=== PATIENT | male | born 2000 | race Caucasian/White ===

== ENCOUNTER 2022-08-12 11:02 | Emergency (ER) | payer SELFPAY ==
--- NOTE | 2022-08-12 12:11 | RAD REPORT ---
EXAM DESCRIPTION: CT - Head C Spine Partha Larson - 08/12/2022 11:34 am CLINICAL HISTORY: Head and neck injury with chest and abdominal pain status post fall. Head and neck pain . TECHNIQUE: Computed axial tomography of the head and cervical spine was obtained Computed axial tomography of the chest, abdomen and pelvis was obtained. 100 cc Isovue-300 was given intravenously coronal and sagittal reconstruction was performed. All CT scans are performed using dose optimization technique as appropriate and may include automated exposure control or mA/KV adjustment according to patient size. FINDINGS: An intracranial bleed is not seen. The ventricles are normal in caliber. An extra-axial fl uid collection is not noted. Fluid within the sinuses is not seen A cervical fracture is not seen. No dislocation is seen. A mediastinal hematoma is not noted. A pleural effusion is not present. A lung contusion is not seen. 1.3 centimeter avulsion fracture involves the inferior glenoid right scapula. Hill-Sachs deformity ri ght humerus The liver, spleen, pancreas, adrenals, kidneys and bladder do not demonstrate an acute traumatic inju ry IMPRESSION: No acute intracranial abnormality is seen A cervical fracture is not visualized. If the patient continues have symptoms to suggest intracranial /spinal cord pathology then MRI would be recommended. 1.3 centimeter avulsion fracture involves the inferior glenoid right scapula
--- NOTE | 2022-08-12 12:58 | RAD REPORT ---
EXAM DESCRIPTION: RAD - Shoulder Right 2 View - 08/12/2022 12:15 pm CLINICAL HISTORY: Right shoulder pain FINDINGS: Hill-Sachs deformity No dislocation Cortical irregularity inferior right glenoid consistent with a fracture
--- NOTE | 2022-08-12 13:18 | ER ---
Nurse's Notes [facility] Name: Parveen Bowser Age: 22 yrs Sex: Male : 2000 Arrival Date: 08/12/2022 Time: 11:04 Bed 4 Private MD: Diagnosis: Fall (on) (from) unspecified stairs and steps;Unspecified injury of head, initial encounter;Pain in right shoulder Presentation: 08/12 11:09 Chief complaint: EMS states: "pt was working on some scaffolding when he lost his [employer] balance and fell about 15 Feet. the other people on site attempted to help stop the fall so came down sideways. it was reported that he his his head and his right shoulder. he did have a positive LOC and was a little confused initially. he was asking the same question about 5 times for about 15 min then became fully functioning again. GCS of 15. backboard and C-collar in place.". Coronavirus screen: At this time, the client does not indicate any symptoms associated with coronavirus-19. Ebola Screen: No symptoms or risks identified at this time. Initial Sepsis Screen: Does the patient meet any 2 criteria? No. Patient's initial sepsis screen is negative. Does the patient have a suspected source of infection? No. Patient's initial sepsis screen is negative. Risk Assessment: Do you want to hurt yourself or someone else? Patient reports no desire to harm self or others. Onset of symptoms was August 12, 2022. 11:09 Method Of Arrival: EMS: [facility] 11:09 Acuity: BAN 2 [facility] 11:10 Care prior to arrival: Cervical collar in place. Placed on backboard. [facility] 11:15 Care prior to arrival: Cervical collar in place. Placed on backboard. [facility] 11:15 Mechanism of Injury: Fall 15 foot scaffolding. 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 Trauma Activation: Alert Physician: ED Physician; Name: Butch; Notified At: 11:00; Arrived At: 11:00 Physician: General Surgeon; Name: ; Notified At: 11:16; Arrived At: Physician: Radiology; Name: CT and Xray; Notified At: 11:16; Arrived At: 11:00 Physician: Respiratory; Name: ; Notified At: 11:16; Arrived At: Physician: Lab; Name: ; Notified At: 11:16; Arrived At: Historical: - Allergies: 11:13 Sulfa (Sulfonamide Antibiotics); jd3 - Home Meds: 11:13 None [Active]; jd3 - PMHx: 11:13 Autoimmune disease; jd3 - Immunization history:: Adult Immunizations up to date. - Social history:: Smoking status: unknown. - Immunization history: Last tetanus immunization: unknown. - Family history:: not pertinent. Screenin:15 Abuse screen: Denies threats or abuse. Nutritional screening: No deficits noted. jd3 Tuberculosis screening: No symptoms or risk factors identified. 11:23 Fall Risk Fall in past 12 months (25 points). IV access (20 points). Ambulatory Aid- jd3 None/Bed Rest/Nurse Assist (0 pts). Gait- Normal/Bed Rest/Wheelchair (0 pts) Mental Status- Oriented to own ability (0 pts). Total Mckeon Fall Scale indicates Low Risk Score (25-44 pts). Fall prevention measures have been instituted. Side Rails Up X 2 Placed close to Nursing Station Frequent Obs/Assesments occuring As available Patient and Family Educated on Fall Prevention Program and strategies. Primary Survey: 11:15 NO uncontrolled hemorrhage observed. A: The client is awake and alert. The airway is jd3 patent. The client is alert. Airway: patent, No supplemental oxygen in use on arrival. Oral cavity: clear, Trachea midline. Breathing/Chest: Spontaneous respiratory effort, equal unlabored respirations, breath sounds clear bilaterally, regular pattern, symmetrical chest rise and fall. Respiratory effort: spontaneous, unlabored, Breath sounds: clear, bilaterally. Respiratory pattern: regular, Chest inspection: symmetrical rise and fall of the chest. Circulation: No external hemorrhage present. Regular and strong central pulse, skin warm/dry/normal color. Pulses: palpable right radial artery, right dorsalis pedis artery, left radial artery, left dorsalis pedis artery, left carotid pulse and right carotid pulse. Skin color: pink, Skin temperature: warm, Heart tones present. Disability Pupils are equal, round, reactive to light and accommodation. Client is alert. Exposure/Environment: All clothing and personal items were removed. Forensic evidence collection is not deemed to be indicated at this time. Items placed in patient belonging bag. There is no evidence of uncontrolled external bleeding. No obvious injuries are noted at this time. A warming method has been applied: A warm blanket has been provided to the patient. 12:13 Reassessment Alertness and Airway: Awake and alert. The airway is patent. Breathing: jd3 Spontaneous respiratory effort, equal unlabored respirations, breath sounds clear bilaterally, regular pattern with symmetrical chest rise and fall. Circulation: No external hemorrhage noted. Regular and strong central pulse, skin warm/dry/normal color. Disability: Pupils Pupils are equal, round, reactive to light and accomodation. Alert. Secondary Survey: 11:15 HEENT: No deficits noted. Gastrointestinal: No deficits noted. : No signs and/or jd3 symptoms were reported regarding the genitourinary system. Musculoskeletal: Circulation, motion, and sensation intact. Range of motion: intact in all extremities. Assessment: 11:15 General: Appears in no apparent distress. comfortable, Behavior is calm, cooperative, jd3 appropriate for age. Pain: Complains of pain in forehead and right shoulder Quality of pain is described as sharp, tender. Neuro: Kendrick Agitation-Sedation Scale (RASS): 0 - Alert and Calm Level of Consciousness is awake, alert, obeys commands, Oriented to person, place, time, situation, Appropriate for age. EENT: No signs and/or symptoms were reported regarding the EENT system. Cardiovascular: Heart tones present Capillary refill < 3 seconds Patient's skin is warm and dry. Rhythm is regular. Respiratory: Airway is patent Respiratory effort is even, unlabored, Respiratory pattern is regular, symmetrical, Breath sounds are clear bilaterally. GI: No signs and/or symptoms were reported involving the gastrointestinal system. Bowel sounds present X 4 quads. Abd is soft and non tender X 4 quads. Patient currently denies diarrhea, nausea, vomiting. : No signs and/or symptoms were reported regarding the genitourinary system. Derm: Skin is intact, Skin is dry, Skin is normal, Skin temperature is warm hematoma noted to right side of forehead. small abrasion noted to chin. no obvious bleeding noted. Musculoskeletal: Circulation, motion, and sensation intact. Range of motion: intact in all extremities. 12:13 Reassessment: Patient appears in no apparent distress at this time. Patient and/or jd3 family updated on plan of care and expected duration. Pain level reassessed. Patient is alert, oriented x 3, equal unlabored respirations, skin warm/dry/pink. C-collar removed per verbal order of Dr. Rae. 13:15 Reassessment: Patient appears in no apparent distress at this time. No changes from jd3 previously documented assessment. Patient and/or family updated on plan of care and expected duration. Pain level reassessed. Patient is alert, oriented x 3, equal unlabored respirations, skin warm/dry/pink. Patient states symptoms have improved. 13:47 Reassessment: Patient appears in no apparent distress at this time. Patient and/or jd3 family updated on plan of care and expected duration. Pain level reassessed. Patient is alert, oriented x 3, equal unlabored respirations, skin warm/dry/pink. pt having forgetfulness when asked if the doctor had discussed discharge plan. pt and pt's friend reported understanding of discharge instructions. Vital Signs: 11:11 BP 125 / 74; Pulse 84; Resp 18; Temp 97.3; Pulse Ox 100% on R/A; mb9 12:13 BP 131 / 87; Pulse 83; Resp 16; Pulse Ox 100% on R/A; jd3 13:15 BP 128 / 69; Pulse 85; Resp 16; Pulse Ox 100% on R/A; jd3 Narka Coma Score: 11:15 Eye Response: spontaneous(4). Verbal Response: oriented(5). Motor Response: obeys jd3 commands(6). Total: 15. 12:13 Eye Response: spontaneous(4). Verbal Response: oriented(5). Motor Response: obeys jd3 commands(6). Total: 15. 13:15 Eye Response: spontaneous(4). Verbal Response: oriented(5). Motor Response: obeys jd3 commands(6). Total: 15. 15:35 Eye Response: spontaneous(4). Verbal Response: oriented(5). Motor Response: obeys rt commands(6). Total: 15. Trauma Score (Adult): 11:15 Eye Response: spontaneous(1); Verbal Response: oriented(1); Motor Response: obeys jd3 commands(2); Systolic BP: > 89 mm Hg(4); Respiratory Rate: 10 to 29 per min(4); Narka Score: 15; Trauma Score: 12 12:13 Eye Response: spontaneous(1); Verbal Response: oriented(1); Motor Response: obeys jd3 commands(2); Systolic BP: > 89 mm Hg(4); Respiratory Rate: 10 to 29 per min(4); Marge Score: 15; Trauma Score: 12 13:15 Eye Response: spontaneous(1); Verbal Response: oriented(1); Motor Response: obeys jd3 commands(2); Systolic BP: > 89 mm Hg(4); Respiratory Rate: 10 to 29 per min(4); Marge Score: 15; Trauma Score: 12 ED Course: 11:04 Patient arrived in ED. eb 11:05 Dmitry Rae MD is Attending Physician. rt 11:08 Cali Young, TOMA is Primary Nurse. jd3 11:13 Triage completed. jd3 11:13 Arm band placed on. jd3 11:15 Patient has correct armband on for positive identification. Placed in gown. Bed in low jd3 position. Call light in reach. Side rails up X2. pt used cell phone to notify family about ER visit. Client placed on continuous cardiac and pulse oximetry monitoring. NIBP monitoring applied. geoscience laboratory technician on. Pulse ox on. NIBP on. 11:15 Inserted saline lock: 18 gauge in right antecubital area, using aseptic technique. aa5 11:15 C-collar remains in place. Patient maintains SpO2 saturation greater than 95% on room jd3 air. Thermoregulation: warm blanket given to patient. 11:35 CT Traumagram (Head C Spine CAP W Con) In Process Unspecified. EDMS 12:17 Shoulder Right (2 View) XRAY In Process Unspecified. EDMS 13:15 Phil Quintero MD is Referral Physician. rt 13:49 No provider procedures requiring assistance completed. IV discontinued, intact, jd3 bleeding controlled, No redness/swelling at site. Pressure dressing applied. Sling applied to right arm. Administered Medications: No medications were administered Medication: 13:15 VIS not applicable for this client. jd3 Intake: 13:49 PO: 0ml; Total: 0ml. jd3 Output: 13:49 Urine: 400ml (Voided); Total: 400ml. jd3 Outcome: 13:17 Discharge ordered by MD. rt 13:49 Discharged to home ambulatory, with friend. jd3 13:49 Condition: stable 13:49 Discharge instructions given to patient, friend, Instructed on discharge instructions, follow up and referral plans. Demonstrated understanding of instructions, follow-up care. 13:49 Patient's length of stay in the Emergency Department was greater than 2 hours. waiting jd3 for resultsPatient's length of stay extended due to 13:50 Patient left the ED. jd3 Signatures: Dispatcher [employer] EDMS Shantel Singh RN RN aa5 Cali Young RN RN jd3 Sadie Lim, Alexandra Arnett, RN RN mb9 Dmitry Rae MD MD rt Corrections: (The following items were deleted from the chart) 11:15 11:13 Allergies: No Known Allergies; jd3 jd3 12:22 12:13 Reassessment: Patient appears in no apparent distress at this time. No changes jd3 from previously documented assessment. Patient and/or family updated on plan of care and expected duration. Pain level reassessed. Patient is alert, oriented x 3, equal unlabored respirations, skin warm/dry/pink. jd3
--- NOTE | 2022-08-12 13:18 | EDPHYS ---
Physician Documentation [facility] Name: Parveen Bowser Age: 22 yrs Sex: Male : 2000 Arrival Date: 08/12/2022 Time: 11:04 Bed 4 Private MD: ED Physician Dmitry Rae HPI: 08/12 15:35 This 22 yrs old Male presents to ER via EMS with complaints of FAll from ladder. rt 15:35 The patient or guardian reports injury. The complaints affect the forehead. Context of rt injury: The problem was sustained at work, resulted from a fall, height greater than five feet. Onset: The symptoms/episode began/occurred just prior to arrival. Associated signs and symptoms: Loss of consciousness: This patient experience a loss of consciousness, Pertinent positives: Right shoulder pain. Severity of symptoms: At their worst the symptoms were moderate. Patient presents to the ED with fall from scaffolding, reportedly 15 feet. He did hit his head, did have loss of consciousness. Reports pain to his head, there is no significant bleeding. Reports right shoulder pain but denies other acute complaints. Time, symptoms are moderate in severity, aching nature, nonradiating, no other aggravating or alleviating factors.. Historical: - Allergies: 11:13 Sulfa (Sulfonamide Antibiotics); jd3 - Home Meds: 11:13 None [Active]; jd3 - PMHx: 11:13 Autoimmune disease; jd3 - Immunization history:: Adult Immunizations up to date. - Social history:: Smoking status: unknown. - Immunization history: Last tetanus immunization: unknown. - Family history:: not pertinent. ROS: 15:35 Constitutional: Negative for fever, chills, and weight loss, Eyes: Negative for injury, rt pain, redness, and discharge, ENT: Negative for injury, pain, and discharge, Neck: Negative for injury, pain, and swelling, Cardiovascular: Negative for chest pain, palpitations, and edema, Respiratory: Negative for shortness of breath, cough, wheezing, and pleuritic chest pain, Abdomen/GI: Negative for abdominal pain, nausea, vomiting, diarrhea, and constipation, Back: Negative for injury and pain, Skin: Negative for injury, rash, and discoloration, Psych: Negative for depression, anxiety, suicide ideation, homicidal ideation, and hallucinations. 15:35 MS/extremity: Positive for tenderness, Negative for decreased range of motion. 15:35 Neuro: Positive for headache, loss of consciousness. Exam: 15:35 Constitutional: This is a well developed, well nourished patient who is awake, alert, rt and in no acute distress. Eyes: Pupils equal round and reactive to light, extra-ocular motions intact. Lids and lashes normal. Conjunctiva and sclera are non-icteric and not injected. Cornea within normal limits. Periorbital areas with no swelling, redness, or edema. ENT: Nares patent. No nasal discharge, no septal abnormalities noted. Tympanic membranes are normal and external auditory canals are clear. Oropharynx with no redness, swelling, or masses, exudates, or evidence of obstruction, uvula midline. Mucous membranes moist. Neck: Trachea midline, no thyromegaly or masses palpated, and no cervical lymphadenopathy. Supple, full range of motion without nuchal rigidity, or vertebral point tenderness. No Meningismus. Chest/axilla: Normal chest wall appearance and motion. Nontender with no deformity. No lesions are appreciated. Cardiovascular: Regular rate and rhythm with a normal S1 and S2. No gallops, murmurs, or rubs. Normal PMI, no JVD. No pulse deficits. Respiratory: Lungs have equal breath sounds bilaterally, clear to auscultation and percussion. No rales, rhonchi or wheezes noted. No increased work of breathing, no retractions or nasal flaring. Abdomen/GI: Soft, non-tender, with normal bowel sounds. No distension or tympany. No guarding or rebound. No evidence of tenderness throughout. Back: No spinal tenderness. No costovertebral tenderness. Full range of motion. Skin: Warm, dry with normal turgor. Normal color with no rashes, no lesions, and no evidence of cellulitis. Neuro: Awake and alert, GCS 15, oriented to person, place, time, and situation. Cranial nerves II-XII grossly intact. Motor strength 5/5 in all extremities. Sensory grossly intact. Cerebellar exam normal. Normal gait. Psych: Awake, alert, with orientation to person, place and time. Behavior, mood, and affect are within normal limits. 15:35 Head/face: Contusion without laceration to the top of the forehead, no other signs of trauma.. 15:35 Musculoskeletal/extremity: Tenderness to the right shoulder without swelling, deformity. Vital Signs: 11:11 BP 125 / 74; Pulse 84; Resp 18; Temp 97.3; Pulse Ox 100% on R/A; mb9 12:13 BP 131 / 87; Pulse 83; Resp 16; Pulse Ox 100% on R/A; jd3 13:15 BP 128 / 69; Pulse 85; Resp 16; Pulse Ox 100% on R/A; jd3 Marge Coma Score: 11:15 Eye Response: spontaneous(4). Verbal Response: oriented(5). Motor Response: obeys jd3 commands(6). Total: 15. 12:13 Eye Response: spontaneous(4). Verbal Response: oriented(5). Motor Response: obeys jd3 commands(6). Total: 15. 13:15 Eye Response: spontaneous(4). Verbal Response: oriented(5). Motor Response: obeys jd3 commands(6). Total: 15. 15:35 Eye Response: spontaneous(4). Verbal Response: oriented(5). Motor Response: obeys rt commands(6). Total: 15. Trauma Score (Adult): 11:15 Eye Response: spontaneous(1); Verbal Response: oriented(1); Motor Response: obeys jd3 commands(2); Systolic BP: > 89 mm Hg(4); Respiratory Rate: 10 to 29 per min(4); Marge Score: 15; Trauma Score: 12 12:13 Eye Response: spontaneous(1); Verbal Response: oriented(1); Motor Response: obeys jd3 commands(2); Systolic BP: > 89 mm Hg(4); Respiratory Rate: 10 to 29 per min(4); [place] Score: 15; Trauma Score: 12 13:15 Eye Response: spontaneous(1); Verbal Response: oriented(1); Motor Response: obeys jd3 commands(2); Systolic BP: > 89 mm Hg(4); Respiratory Rate: 10 to 29 per min(4); [place] Score: 15; Trauma Score: 12 MDM: 11:05 Patient medically screened. rt 15:35 Differential diagnosis: Contusion of Intracranial bleed- Concussion. Data reviewed: rt vital signs, nurses notes, EMS record, lab test result(s), radiologic studies. ED course: Presents to the ED with head injury after falling about 15 feet. Given mechanism of injury, CT ayon scan was obtained that shows no acute abnormalities. The patient is found to have a Hill-Sachs deformity of the right glenoid, unclear if the patient had a dislocated shoulder or not. Is not currently dislocated. He has no neurovascular compromise. Patient be placed in a sling, to follow-up as an outpatient. Patient is ambulatory that difficulty. Return precautions were discussed. 08/12 11:06 Order name: CT Traumagram (Head C Spine CAP W Con); Complete Time: 12:55 rt 08/12 11:06 Order name: Shoulder Right (2 View) XRAY; Complete Time: 13:07 rt 08/12 13:14 Order name: Sling; Complete Time: 13:47 rt Administered Medications: No medications were administered Disposition Summary: 08/12/22 13:17 Discharge Ordered Location: Home rt Problem: new rt Symptoms: have improved rt Condition: Stable rt Diagnosis - Fall (on) (from) unspecified stairs and steps rt - Unspecified injury of head, initial encounter rt - Pain in right shoulder rt Followup: rt - With: Phil Quintero MD - When: 5 - 6 days - Reason: Discharge Instructions: - Discharge Summary Sheet rt - Head Injury, Adult rt - Musculoskeletal Pain rt Forms: - Medication Reconciliation Form rt - Thank You Letter rt - Antibiotic Education rt - Prescription Opioid Use rt Signatures: Dispatcher [employer] Cali Valdez RN RN jd3 [place], Ryan, MD MD rt Corrections: (The following items were deleted from the chart) 11:15 11:13 Allergies: No Known Allergies; padmini [place]
[2022-08-12 13:59] VITALS: TEMP 97.3; O2SAT 100
[2022-08-12 14:01] VITALS: BP 128/69
== END 2022-08-12 13:50 | disposition home or self-care (01) ==
LOC: ER 11:02 → EDBD 11:02 → ER 13:50
DX: S09.90XA Unspecified injury of head, initial encounter (principal); M25.511 Pain in right shoulder; W11.XXXA Fall on and from ladder, initial encounter
CPT/HCPCS: 70450; 71260; 72125; 74177; 99285; Q9967